=== PATIENT | female | born 1970 | race Caucasian/White ===

== ENCOUNTER 2021-05-04 20:26 | Inpatient (IN) | payer OTHER ==
[~2021-05-04] VITALS: Ht 167.6 cm; Wt 64.9 kg
[2021-05-05] MEDS ORDERED: COMBIVENT RESPIM4 GM INH (01:18)
[2021-05-05] MEDS ORDERED: KLONOPIN TAB 00.5 MG PO (01:19)
[2021-05-05] MEDS ORDERED: HYDROCODON-ACE1 EAC4 PO (01:19)
[2021-05-05] MEDS ORDERED: FAMOTIDINE20 MG PO (01:19)
[2021-05-05] MEDS ORDERED: LEVALBUTER1.25 MG/3 INH (01:20)
[2021-05-05 01:36] LABS: HEMOGLOBIN 12.3 gm/dl (12.3-15.3); RED BLOOD COUNT 3.67 M/UL (4.00-5.10); WHITE BLOOD COUNT 20.6 K/UL (4.5-11.0)
[2021-05-05 02:32] LABS: BUN/CREATININE RATIO 37 (0-10)
[2021-05-05] MEDS ORDERED: BROVANA15 MCG/2 M INH (09:10)
[2021-05-06 06:15] LABS: HEMOGLOBIN 10.6 gm/dl (12.3-15.3); RED BLOOD COUNT 3.36 M/UL (4.00-5.10)
[2021-05-06 06:17] LABS: WHITE BLOOD COUNT 9.1 K/UL (4.5-11.0)
[2021-05-06 06:40] LABS: BUN/CREATININE RATIO 50 (0-10)
[2021-05-06 09:29] LABS: BORDETELLA PARAPERTUSSIS Not Detected (Not Detectd); BORDETELLA PERTUSSIS Not Detected (Not Detectd); CHLAMYDIA PNEUMONIAE Not Detected (Not Detectd); CORONAVIRUS HKU1 Not Detected (Not Detectd); CORONAVIRUS NL63 Not Detected (Not Detectd); CORONAVIRUS OC43 Not Detected (Not Detectd); CORONOAVIRUS 229E Not Detected (Not Detectd); HUMAN METAPNEUMOVIRUS Not Detected (Not Detectd); HUMAN RHINOVIRUS/ENTEROVIRUS Not Detected (Not Detectd); INFLUENZA A Not Detected (Not Detectd); INFLUENZA B Not Detected (Not Detectd); MYCOPLASMA PNEUMONIAE Not Detected (Not Detectd); PARAINFLUENZA VIRUS 1 Not Detected (Not Detectd); PARAINFLUENZA VIRUS 2 Not Detected (Not Detectd); PARAINFLUENZA VIRUS 3 Not Detected (Not Detectd); PARAINFLUENZA VIRUS 4 Not Detected (Not Detectd); RESPIRATORY SYNCYTIAL VIRUS Not Detected (Not Detectd)
[2021-05-06 10:39] LABS: SARS-CoV-2 NOT DETECTED (Not Detectd)
[2021-05-07 05:23] LABS: HEMOGLOBIN 10.7 gm/dl (12.3-15.3); RED BLOOD COUNT 3.3 M/UL (4.00-5.10); WHITE BLOOD COUNT 10.7 K/UL (4.5-11.0)
[2021-05-07 06:24] LABS: BUN/CREATININE RATIO 43 (0-10)
[2021-05-08 04:57] LABS: HEMOGLOBIN 10.9 gm/dl (12.3-15.3); RED BLOOD COUNT 3.38 M/UL (4.00-5.10); WHITE BLOOD COUNT 10.2 K/UL (4.5-11.0)
[2021-05-08 09:59] LABS: BUN/CREATININE RATIO 35 (0-10)
[2021-05-08 16:14] LABS: ORGANISM ID Not indicated. (.); SPECIMEN SOURCE Urine (.)
[2021-05-09 05:11] LABS: HEMOGLOBIN 10.1 gm/dl (12.3-15.3); RED BLOOD COUNT 3.13 M/UL (4.00-5.10); WHITE BLOOD COUNT 7.8 K/UL (4.5-11.0)
[2021-05-09 05:56] LABS: BUN/CREATININE RATIO 53 (0-10)
[2021-05-09 12:13] LABS: STREPTOCOCCUS PNEUMONIAE AG Positive (Negative)
[2021-05-12 03:33] LABS: HEMOGLOBIN 11.1 gm/dl (12.3-15.3); RED BLOOD COUNT 3.41 M/UL (4.00-5.10)
[2021-05-12 03:36] LABS: WHITE BLOOD COUNT 10.9 K/UL (4.5-11.0)
[2021-05-12 04:06] LABS: BUN/CREATININE RATIO 43 (0-10)
[2021-05-13 09:04] LABS: HEMOGLOBIN 11.5 gm/dl (12.3-15.3); RED BLOOD COUNT 3.49 M/UL (4.00-5.10); WHITE BLOOD COUNT 12.4 K/UL (4.5-11.0)
[2021-05-13 09:25] LABS: BUN/CREATININE RATIO 44 (0-10)
[2021-05-14 04:11] LABS: HEMOGLOBIN 10.9 gm/dl (12.3-15.3); RED BLOOD COUNT 3.35 M/UL (4.00-5.10); WHITE BLOOD COUNT 14.6 K/UL (4.5-11.0)
[2021-05-14 04:46] LABS: BUN/CREATININE RATIO 45 (0-10)
[2021-05-14] MEDS ORDERED: MEDROL4 MG PO (11:15)
[2021-05-14] MEDS ORDERED: LEVOFLOXACIN500 MG PO (11:15)
== END 2021-05-14 11:50 | disposition home or self-care (01) | DRG 193 ==
LOC: PROG CARE 23:45 → CCU 23:45 → PROG CARE 05-10 13:01
PROVIDERS: Internal Medicine; ADMIT Internal Medicine
PROC: 5A09457 Assistance with Respiratory Ventilation, 24-96 Consecutive Hours, Continuous Positive Airway Pressure (ICD-10-PCS; 2021-05-04)
PROC: B24BZZZ Ultrasonography of Heart with Aorta (ICD-10-PCS; principal; 2021-05-06)
DX: J15.4 Pneumonia due to other streptococci (principal); J96.21 Acute and chronic respiratory failure with hypoxia; Z20.822 Contact with and (suspected) exposure to COVID-19; J96.22 Acute and chronic respiratory failure with hypercapnia; J44.0 Chronic obstructive pulmonary disease with (acute) lower respiratory infection; J44.1 Chronic obstructive pulmonary disease with (acute) exacerbation; E87.2 Acidosis; F41.9 Anxiety disorder, unspecified; G89.29 Other chronic pain; R47.02 Dysphasia; I10 Essential (primary) hypertension; E53.8 Deficiency of other specified B group vitamins; F17.210 Nicotine dependence, cigarettes, uncomplicated; Z88.8 Allergy status to other drugs, medicaments and biological substances; Z88.6 Allergy status to analgesic agent; Z88.5 Allergy status to narcotic agent; Z88.1 Allergy status to other antibiotic agents; Z99.81 Dependence on supplemental oxygen
CPT/HCPCS: ECHO; 36415; 36600; 71045; 80048; 80053; 80202; 81001; 82550; 82553; 82607; 82728; 82803; 83036; 83540; 83550; 83605; 83735; 83880; 84100; 84132; 84439; 84443; 84484; 85025; 85027; 85610; 85652; 86140; 87040; 87070; 87081; 87205; 87278; 87633; 87880; 87899; 93005; 93306; 94640; 94660; 94664; 94760; 97116; 97116-GP-CQ; 97162; J1650; J2185; J2920; J2930; J3370; J3420; J7030; J7070

== ENCOUNTER 2021-06-03 15:16 | Emergency (ER) | payer OTHER ==
[~2021-06-03 15:16] MED LIST: BROVANA15 MCG/2 M INH; COMBIVENT RESPIM4 GM INH; FAMOTIDINE20 MG PO; HYDROCODON-ACE1 EAC4 PO; KLONOPIN TAB 00.5 MG PO; LEVALBUTER1.25 MG/3 INH; LEVOFLOXACIN500 MG PO; MEDROL4 MG PO
[2021-06-03 18:44] LABS: HEMOGLOBIN 11.2 gm/dl (12.3-15.3); RED BLOOD COUNT 3.42 M/UL (4.00-5.10); WHITE BLOOD COUNT 10.5 K/UL (4.5-11.0)
[2021-06-03 19:08] LABS: BUN/CREATININE RATIO 18 (0-10)
== END 2021-06-04 00:14 | disposition home or self-care (01) ==
LOC: ER1 15:16
PROVIDERS: Nurse Practitioner
DX: U07.1 COVID-19 (principal); S20.214A Contusion of middle front wall of thorax, initial encounter; R06.02 Shortness of breath; J44.9 Chronic obstructive pulmonary disease, unspecified; Z87.891 Personal history of nicotine dependence; Z88.5 Allergy status to narcotic agent; Z88.8 Allergy status to other drugs, medicaments and biological substances; W19.XXXA Unspecified fall, initial encounter
CPT/HCPCS: 36600; 71045; 72125; 80048; 81001; 82550; 82553; 82803; 83874; 84484; 85025; 85379; 85652; 86140; 93005; 99285; Q9967

== ENCOUNTER 2021-07-19 19:05 | Emergency (ER) | payer OTHER ==
[2021-07-19 19:53] LABS: HEMOGLOBIN 13.3 gm/dl (12.3-15.3); RED BLOOD COUNT 4.07 M/UL (4.00-5.10); WHITE BLOOD COUNT 11.2 K/UL (4.5-11.0)
[2021-07-19 20:20] LABS: BUN/CREATININE RATIO 24 (0-10)
[2021-07-19] MEDS ORDERED: PREDNISONE20 MG PO (21:11)
== END 2021-07-19 21:26 | disposition home or self-care (01) ==
LOC: ER1 19:05
PROVIDERS: Family Medicine
DX: J44.1 Chronic obstructive pulmonary disease with (acute) exacerbation (principal); I10 Essential (primary) hypertension; F17.200 Nicotine dependence, unspecified, uncomplicated
CPT/HCPCS: 36600; 71045; 80048; 82550; 82553; 82803; 83605; 83880; 84484; 85025; 93005; 94664; 99285

== ENCOUNTER 2021-07-23 20:56 | Inpatient (IN) | payer OTHER ==
[~2021-07-23] VITALS: Ht 167.6 cm; Wt 63.5 kg
[~2021-07-23 20:56] MED LIST changes: +HYDROCODON-ACE1 EAC2 PO; -HYDROCODON-ACE1 EAC4 PO; -KLONOPIN TAB 00.5 MG PO; +KLONOPIN1 MG PO; +PREDNISONE20 MG PO
[2021-07-23 21:31] LABS: HEMOGLOBIN 13.6 gm/dl (12.3-15.3); RED BLOOD COUNT 4.14 M/UL (4.00-5.10); WHITE BLOOD COUNT 11.8 K/UL (4.5-11.0)
[2021-07-23 22:28] LABS: BUN/CREATININE RATIO 14 (0-10)
[2021-07-24 06:52] LABS: BUN/CREATININE RATIO 21 (0-10)
[2021-07-24 08:11] LABS: WHITE BLOOD COUNT 7.9 K/UL (4.5-11.0)
[2021-07-24 08:12] LABS: HEMOGLOBIN 13.1 gm/dl (12.3-15.3); RED BLOOD COUNT 4.04 M/UL (4.00-5.10)
[2021-07-24] MEDS ORDERED: TRAZODONE HCL50 MG PO (10:35)
[2021-07-24] MEDS ORDERED: PROMETHAZINE HC25 M1 PO (10:35)
[2021-07-24] MEDS ORDERED: FUROSEMIDE20 MG PO (10:36)
[2021-07-24] MEDS ORDERED: ZOFRAN 4 MG TAB4 MG PO (10:36)
[2021-07-26 17:28] LABS: BUN/CREATININE RATIO 36 (0-10)
[2021-07-29 03:19] LABS: BUN/CREATININE RATIO 30 (0-10)
[2021-07-29] MEDS ORDERED: MEDROL DOSEPAK 24 MG PO (10:55)
[2021-07-29] MEDS ORDERED: FAMOTIDINE20 MG PO (10:55)
== END 2021-07-29 13:18 | disposition home or self-care (01) | DRG 189 ==
LOC: ER1 20:56 → CDU 22:40 → PROG CARE 22:40
PROVIDERS: Emergency Medicine; Internal Medicine; ADMIT Internal Medicine
PROC: 5A09357 Assistance with Respiratory Ventilation, Less than 24 Consecutive Hours, Continuous Positive Airway Pressure (ICD-10-PCS; principal; 2021-07-23)
PROC: 5A09357 Assistance with Respiratory Ventilation, Less than 24 Consecutive Hours, Continuous Positive Airway Pressure (ICD-10-PCS; 2021-07-25)
PROC: 5A09357 Assistance with Respiratory Ventilation, Less than 24 Consecutive Hours, Continuous Positive Airway Pressure (ICD-10-PCS; 2021-07-25)
PROC: 5A09357 Assistance with Respiratory Ventilation, Less than 24 Consecutive Hours, Continuous Positive Airway Pressure (ICD-10-PCS; 2021-07-25)
PROC: 5A09357 Assistance with Respiratory Ventilation, Less than 24 Consecutive Hours, Continuous Positive Airway Pressure (ICD-10-PCS; 2021-07-26)
PROC: 5A09357 Assistance with Respiratory Ventilation, Less than 24 Consecutive Hours, Continuous Positive Airway Pressure (ICD-10-PCS; 2021-07-26)
PROC: 5A09357 Assistance with Respiratory Ventilation, Less than 24 Consecutive Hours, Continuous Positive Airway Pressure (ICD-10-PCS; 2021-07-27)
PROC: 5A09357 Assistance with Respiratory Ventilation, Less than 24 Consecutive Hours, Continuous Positive Airway Pressure (ICD-10-PCS; 2021-07-27)
PROC: 5A09357 Assistance with Respiratory Ventilation, Less than 24 Consecutive Hours, Continuous Positive Airway Pressure (ICD-10-PCS; 2021-07-28)
PROC: 5A09357 Assistance with Respiratory Ventilation, Less than 24 Consecutive Hours, Continuous Positive Airway Pressure (ICD-10-PCS; 2021-07-29)
DX: J96.21 Acute and chronic respiratory failure with hypoxia (principal); J44.1 Chronic obstructive pulmonary disease with (acute) exacerbation; F11.20 Opioid dependence, uncomplicated; Z20.822 Contact with and (suspected) exposure to COVID-19; J96.22 Acute and chronic respiratory failure with hypercapnia; F17.210 Nicotine dependence, cigarettes, uncomplicated; I11.9 Hypertensive heart disease without heart failure; E87.6 Hypokalemia; F41.9 Anxiety disorder, unspecified; F32.A Depression, unspecified; R79.89 Other specified abnormal findings of blood chemistry; G89.29 Other chronic pain; Z71.6 Tobacco abuse counseling; Z99.81 Dependence on supplemental oxygen; Z87.01 Personal history of pneumonia (recurrent)
CPT/HCPCS: 36600; 71045; 80048; 80053; 81001; 82550; 82553; 82607; 82746; 82803; 83735; 83880; 84100; 84439; 84443; 84484; 85025; 86140; 87086; 93005; 94640; 94660; 94760; 96365; 96375; 96376; 97116-GP-CQ; 97161; 99285; C9113; J1650; J1956; J2060; J2185; J2920; J2930; U0002

== ENCOUNTER 2021-08-11 18:07 | Inpatient (IN) | payer OTHER ==
[~2021-08-11] VITALS: Ht 167.6 cm; Wt 71.0 kg
[~2021-08-11 18:07] MED LIST changes: +FUROSEMIDE20 MG PO; +MEDROL DOSEPAK 24 MG PO; +PROMETHAZINE HC25 M1 PO; +TRAZODONE HCL50 MG PO; +ZOFRAN 4 MG TAB4 MG PO
[2021-08-11 20:29] LABS: HEMOGLOBIN 12.9 gm/dl (12.3-15.3); RED BLOOD COUNT 4.02 M/UL (4.00-5.10); WHITE BLOOD COUNT 14.1 K/UL (4.5-11.0)
[2021-08-11] MEDS ORDERED: BROVANA15 MCG/2 M INH (20:32)
[2021-08-11] MEDS ORDERED: COMBIVENT RESPIM4 GM INH (20:34)
[2021-08-11 21:00] LABS: BUN/CREATININE RATIO 14 (0-10)
[2021-08-12] MEDS ORDERED: SPIRIVA18 MCG INH (16:58)
[2021-08-13 05:33] LABS: HEMOGLOBIN 12.4 gm/dl (12.3-15.3); RED BLOOD COUNT 3.89 M/UL (4.00-5.10); WHITE BLOOD COUNT 12.1 K/UL (4.5-11.0)
[2021-08-13 06:01] LABS: BUN/CREATININE RATIO 28 (0-10)
[2021-08-15 03:36] LABS: RED BLOOD COUNT 3.76 M/UL (4.00-5.10)
[2021-08-15 03:47] LABS: WHITE BLOOD COUNT 8.3 K/UL (4.5-11.0)
[2021-08-15 06:03] LABS: BUN/CREATININE RATIO 28 (0-10)
[2021-08-16] MEDS ORDERED: PREDNISONE 10 M10 MG GT (12:26)
[2021-08-16] MEDS ORDERED: HUMIBID LA TAB600 MG PO (12:26)
[2021-08-16] MEDS ORDERED: LEVALBUTER1.25 MG/3 NEB (12:26)
[2021-08-16] MEDS ORDERED: NICOTINE PATCH1 EAC2 TOP (12:26)
[2021-08-16] MEDS ORDERED: BENZONATATE100 MG PO (12:26)
[2021-08-16] MEDS ORDERED: LOPRESSOR 25 MG25 MG PO (12:26)
[2021-08-16] MEDS ORDERED: IPRATROPIU0.2 MG/1 M NEB (12:26)
[2021-08-16] MEDS ORDERED: AZITHROMYCIN250 MG PO (12:26)
[2021-08-16] MEDS ORDERED: BUDESONIDE0.5 MG/2 M NEB (12:26)
[2021-08-16] MEDS ORDERED: ACETAMINOPHEN325 MG PO (12:26)
[2021-08-21 23:09] LABS: 25-HYDROXY, VITAMIN D 5.9 ng/mL (.); 25-HYDROXY, VITAMIN D-2 <1.0 ng/mL (.); 25-HYDROXY, VITAMIN D-3 5.5 ng/mL (.)
== END 2021-08-16 14:34 | disposition home or self-care (01) | DRG 871 ==
LOC: CCU 18:07 → M/S 19:54 → CCU 19:54 → M/S 08-13 18:39
PROVIDERS: Internal Medicine; ADMIT Internal Medicine
PROC: 3E03329 Introduction of Other Anti-infective into Peripheral Vein, Percutaneous Approach (ICD-10-PCS; principal; 2021-08-11)
PROC: 5A09357 Assistance with Respiratory Ventilation, Less than 24 Consecutive Hours, Continuous Positive Airway Pressure (ICD-10-PCS; 2021-08-11)
PROC: 5A09357 Assistance with Respiratory Ventilation, Less than 24 Consecutive Hours, Continuous Positive Airway Pressure (ICD-10-PCS; 2021-08-12)
PROC: 5A09357 Assistance with Respiratory Ventilation, Less than 24 Consecutive Hours, Continuous Positive Airway Pressure (ICD-10-PCS; 2021-08-13)
PROC: 5A09357 Assistance with Respiratory Ventilation, Less than 24 Consecutive Hours, Continuous Positive Airway Pressure (ICD-10-PCS; 2021-08-14)
PROC: 5A09357 Assistance with Respiratory Ventilation, Less than 24 Consecutive Hours, Continuous Positive Airway Pressure (ICD-10-PCS; 2021-08-15)
PROC: 5A09357 Assistance with Respiratory Ventilation, Less than 24 Consecutive Hours, Continuous Positive Airway Pressure (ICD-10-PCS; 2021-08-15)
PROC: 5A09357 Assistance with Respiratory Ventilation, Less than 24 Consecutive Hours, Continuous Positive Airway Pressure (ICD-10-PCS; 2021-08-16)
DX: A41.9 Sepsis, unspecified organism (principal); J96.21 Acute and chronic respiratory failure with hypoxia; J96.22 Acute and chronic respiratory failure with hypercapnia; F11.20 Opioid dependence, uncomplicated; J44.1 Chronic obstructive pulmonary disease with (acute) exacerbation; Z20.822 Contact with and (suspected) exposure to COVID-19; G89.29 Other chronic pain; F41.9 Anxiety disorder, unspecified; F17.210 Nicotine dependence, cigarettes, uncomplicated; G47.00 Insomnia, unspecified; G43.909 Migraine, unspecified, not intractable, without status migrainosus; J40 Bronchitis, not specified as acute or chronic; I11.9 Hypertensive heart disease without heart failure; R65.20 Severe sepsis without septic shock; J30.9 Allergic rhinitis, unspecified; F32.A Depression, unspecified; Z99.81 Dependence on supplemental oxygen; Z90.49 Acquired absence of other specified parts of digestive tract; Z98.890 Other specified postprocedural states; Z90.710 Acquired absence of both cervix and uterus; Z91.14 Patient's other noncompliance with medication regimen; Z88.6 Allergy status to analgesic agent; Z88.1 Allergy status to other antibiotic agents; Z88.8 Allergy status to other drugs, medicaments and biological substances
CPT/HCPCS: 36415; 36600; 71045; 80048; 80053; 80307; 82306; 82803; 83735; 84550; 85025; 85027; 87040; 87070; 87205; 93005; 94640; 94660; 94664; 94668; 94760; J0456; J1335; J1650; J2920; J7030